=== PATIENT | female | born 1970 | race Caucasian/White ===

== ENCOUNTER 2017-08-20 15:55 | Day surgery (SDC) | payer MEDICAID ==
[~2017-08-20] VITALS: Ht 172.7 cm; Wt 92.4 kg
[2017-08-20] MEDS ORDERED: LACTATED RINGERS 1,000 ML IV SCH (16:07)
[2017-08-20 16:16] VITALS: BP 143/92
[2017-08-20] MEDS ORDERED: LIDOCAINE 1%, 2ML ONE (16:16)
[2017-08-20] MEDS ORDERED: GEMF600T3 PO (16:25)
[2017-08-20] MEDS ORDERED: TORADOL (16:25)
[2017-08-20] MEDS ORDERED: GABA300C10 PO (16:25)
[2017-08-20] MEDS ORDERED: ASPI-515 PO (16:25)
[2017-08-20] MEDS ORDERED: CHOL10003 PO (16:25)
[2017-08-20] MEDS ORDERED: CITA20TA5 PO (16:25)
[2017-08-20] MEDS ORDERED: LEVO150T5 PO (16:25)
[2017-08-20] MEDS ORDERED: ESTR2TAB PO (16:25)
[2017-08-20] MEDS ORDERED: NAPR500T4 PO (16:25)
[2017-08-20] MEDS ORDERED: ATEN50TA41 PO (16:25)
[2017-08-20] MEDS ORDERED: HYDR50TA13 PO (16:25)
[2017-08-20] MEDS ORDERED: PREN1TAB10 PO (16:25)
[2017-08-20] MEDS ORDERED: CYCL-259 PO (16:25)
[2017-08-20] MEDS ORDERED: TRAM50TA2 PO (16:25)
[2017-08-20] MEDS ORDERED: LISI5TAB7 PO (16:25)
[2017-08-20 17:03] LABS: BASOPHILS # (AUTO) 0.08 x10^3/uL (0-0.1); BASOPHILS % (AUTO) 1 % (0-1); EOSINOPHILS # (AUTO) 0.33 x10^3/uL (0-0.4); EOSINOPHILS % (AUTO) 3 % (1-7); LYMPHOCYTES # (AUTO) 4.46 x10^3/uL (1-3.4); LYMPHOCYTES % (AUTO) 41 % (22-44); MD NO; MEAN CORPUSCULAR HEMOGLOBIN 27.3 pg (27.0-34.8); MEAN CORPUSCULAR HGB CONC 32.8 g/dL (32.4-35.8); MEAN CORPUSCULAR VOLUME 83.4 fL (80-100); MEAN PLATELET VOLUME 8.6 fL (7.4-10.4); MONOCYTES # (AUTO) 0.54 x10^3/uL (0.2-0.8); MONOCYTES % (AUTO) 5 % (2-9); NEUTROPHILS # (AUTO) 5.36 x10^3/uL (1.8-6.8); NEUTROPHILS % (AUTO) 50 % (42-75); PLATELET COUNT 274 x10^3/uL (130-400); RED BLOOD COUNT 4.87 x10^6/uL (3.82-5.3); RED CELL DISTRIBUTION WIDTH 16.5 % (9.6-15.2)
[2017-08-20] MEDS ORDERED: FENTANYL PF 100 MCG/2ML ONE (17:11)
[2017-08-20] MEDS ORDERED: MIDAZOLAM 1 MG/ML, 2ML ONE (17:12)
[2017-08-20] MEDS ORDERED: ONDANSETRON 2MG/ML, 2ML ONE (17:34)
[2017-08-20] MEDS ORDERED: PROPOFOL 10 MG/ML, 20ML ONE ×2 (17:34)
[2017-08-20] MEDS ORDERED: DEXAMETHASONE 4 MG/ML, 1ML ONE ×2 (17:34→17:35)
[2017-08-20] MEDS ORDERED: HYDROmorphone 2 MG/ML, 1ML ONE (17:35)
[2017-08-20] MEDS ORDERED: KETOROLAC 30 MG/1 ML ONE (17:35)
[2017-08-20 17:43] LABS: CHLORIDE 106 mmol/L (98-107)
[2017-08-20 17:44] LABS: ANION GAP 10 mmol/L (5-15); CALCIUM 9.4 mg/dL (8.5-10.1); CREATININE 0.83 mg/dL (0.55-1.02)
[2017-08-20] MEDS ORDERED: BUPIVACAINE/PF 0.5% INFIL ONE (17:52)
[2017-08-20] MEDS ORDERED: BUPIVACAINE/PF 0.5% ONE (17:52)
[2017-08-20] MEDS ORDERED: OXYcodone 5 MG/5 ML ORAL.SOL UDC ONE (18:05)
[2017-08-20] MEDS ORDERED: FENTANYL PF 100 MCG/2ML IV PRN (18:30)
[2017-08-20] MEDS ORDERED: OXYcodone 5 MG/5 ML ORAL.SOL UDC PO PRN (18:30)
[2017-08-20] MEDS ORDERED: MEPERIDINE/PF 25MG/0.5ML IVPush PRN (18:30)
[2017-08-20] MEDS ORDERED: LABETALOL 5MG/ML, 20ML IV PRN (18:30)
[2017-08-20] MEDS ORDERED: hydrALAzine 20 MG/ML, 1ML IV PRN (18:30)
[2017-08-20] MEDS ORDERED: HYDROmorphone 1 MG/ML, 1ML IV PRN (18:30)
[2017-08-20] MEDS ORDERED: PROMETHAZINE 25 MG/ML, 1ML IV PRN (18:30)
[2017-08-20] MEDS ORDERED: ONDANSETRON 2MG/ML, 2ML IVPush PRN (18:30)
[2017-08-20] MEDS ORDERED: ACETAMINOPHEN 325 MG TABLET PO PRN (18:30)
== END 2017-08-20 19:35 | disposition home or self-care (01) ==
LOC: OR 15:55 → 4NOR 18:55 → OR 19:35
PROVIDERS: ATTEND Orthopaedic Surgery Orthopaedic Surgery of the Spine
DX: T81.30XA Disruption of wound, unspecified, initial encounter (principal); I10 Essential (primary) hypertension; E03.9 Hypothyroidism, unspecified; Y83.8 Other surgical procedures as the cause of abnormal reaction of the patient, or of later complication, without mention of misadventure at the time of the procedure; Y92.89 Other specified places as the place of occurrence of the external cause; Z88.1 Allergy status to other antibiotic agents; Z88.5 Allergy status to narcotic agent; Z88.8 Allergy status to other drugs, medicaments and biological substances
CPT/HCPCS: 28110; 36415; 80048; 85025; 93005; J1100; J1170; J1885; J2250; J2405; J2704; J3010; J3490; J7120